=== PATIENT | male | born 1955 | race Caucasian/White ===

== ENCOUNTER 2019-04-06 04:28 | Emergency (ER) | payer OTHER ==
[~2019-04-06] VITALS: Ht 177.8 cm; Wt 81.6 kg
[2019-04-06] MEDS ORDERED: ASPIRIN 325 MG TABLET PO ONE (05:00)
[2019-04-06] MEDS ORDERED: METOPROLOL SUCCINATE XL 25 MG TAB.SR.24H PO ONE ×2 (05:00→05:01)
[2019-04-06 05:01] VITALS: BP 151/92
[2019-04-06] MEDS ORDERED: ASPIRIN 325 MG TABLET ONE (05:01)
[2019-04-06 05:19] LABS: POTASSIUM 3.8 mmol/L (3.5-5.1)
[2019-04-06 05:24] LABS: BASOPHILS # (AUTO) 0.1 K/uL (0.0-8.0); BASOPHILS % (AUTO) 0.9 % (0.0-2.0); EOSINOPHILS # (AUTO) 0.2 K/uL (0.0-0.7); EOSINOPHILS % (AUTO) 2.9 % (0.0-7.0); HEMATOCRIT 40.9 % (36.7-47.1); HEMOGLOBIN 13.9 g/dL (12.5-16.3); LYMPHOCYTES # (AUTO) 3.1 K/uL (20.0-40.0); LYMPHOCYTES % (AUTO) 37.3 % (20.5-51.5); MEAN CORPUSCULAR HEMOGLOBIN 31.6 uug (23.8-33.4); MEAN CORPUSCULAR HGB CONC 34 g/dL (32.5-36.3); MEAN CORPUSCULAR VOLUME 92.7 fL (73.0-96.2); MONOCYTES # (AUTO) 0.5 K/uL (2.0-10.0); MONOCYTES % (AUTO) 6.5 % (0.0-11.0); NEUTROPHILS # (AUTO) 4.4 K/uL (1.8-8.9); NEUTROPHILS % (AUTO) 52.4 % (38.5-71.5); PLATELET COUNT (AUTO) 240 K/uL (152-348); WHITE BLOOD COUNT (AUTO) 8.3 K/uL (3.6-10.2)
--- NOTE | 2019-04-06 06:13 | NUR ---
Patient discharged to home in stable conditon. Written and verbal after care instructions given. Patient verbalizes understanding of instructions.
== END 2019-04-06 06:15 | disposition home or self-care (01) ==
LOC: ER 04:30
DX: R00.2 Palpitations (principal); I49.3 Ventricular premature depolarization; E03.9 Hypothyroidism, unspecified; Z90.49 Acquired absence of other specified parts of digestive tract
CPT/HCPCS: 36415; 70030-TC; 71045; 84443; 85025; 93005; A4663

== ENCOUNTER 2019-08-13 20:35 | Emergency (ER) | payer OTHER ==
[~2019-08-13] VITALS: Ht 175.3 cm; Wt 81.6 kg
--- NOTE | 2019-08-13 21:23 | NUR ---
Dr. Parsons at bedside for MSE.
[2019-08-13] MEDS ORDERED: diphenhydrAMINE 50 MG CAPSULE PO ONE (21:30)
[2019-08-13] MEDS ORDERED: predniSONE 20 MG TABLET PO ONE (21:30)
[2019-08-13] MEDS ORDERED: FAMOTIDINE 20 MG TABLET PO ONE (21:30)
[2019-08-13] MEDS ORDERED: predniSONE 20 MG TABLET ONE (21:33)
[2019-08-13] MEDS ORDERED: diphenhydrAMINE 50 MG CAPSULE ONE (21:33)
[2019-08-13] MEDS ORDERED: FAMOTIDINE 20 MG TABLET ONE (21:34)
[2019-08-13 21:49] LABS: BASOPHILS % (AUTO) 0.6 % (0.0-2.0); EOSINOPHILS # (AUTO) 0.5 K/uL (0.0-0.7); EOSINOPHILS % (AUTO) 6.5 % (0.0-7.0); HEMATOCRIT 39.9 % (36.7-47.1); HEMOGLOBIN 13.7 g/dL (12.5-16.3); LYMPHOCYTES # (AUTO) 2.8 K/uL (20.0-40.0); LYMPHOCYTES % (AUTO) 39.1 % (20.5-51.5); MEAN CORPUSCULAR HEMOGLOBIN 32.6 uug (23.8-33.4); MEAN CORPUSCULAR HGB CONC 34 g/dL (32.5-36.3); MEAN CORPUSCULAR VOLUME 95.3 fL (73.0-96.2); MONOCYTES # (AUTO) 0.5 K/uL (2.0-10.0); MONOCYTES % (AUTO) 6.9 % (0.0-11.0); NEUTROPHILS # (AUTO) 3.4 K/uL (1.8-8.9); NEUTROPHILS % (AUTO) 46.9 % (38.5-71.5); PLATELET COUNT (AUTO) 241 K/uL (152-348); RED BLOOD CELL COUNT(AUTO) 4.19 MIL/uL (4.06-5.63); WHITE BLOOD COUNT (AUTO) 7.3 K/uL (3.6-10.2)
[2019-08-13 21:57] LABS: POTASSIUM 3.6 mmol/L (3.5-5.1)
[2019-08-13 22:10] LABS: BILIRUBIN,DIRECT 0.1 mg/dL (0.0-0.2); BILIRUBIN,TOTAL 0.5 mg/dL (0.2-1.0); TOTAL PROTEIN, SERUM 6.8 g/dL (6.4-8.2)
--- NOTE | 2019-08-13 22:51 | NUR ---
Ultrasound at bedside.
--- NOTE | 2019-08-13 23:22 | NUR ---
Pt provided urine sample, sent to lab.
[2019-08-13 23:27] LABS: *BILIRUBIN,URIN NEGATIVE (NEGATIVE); *BLOOD, URINE 1+ (NEGATIVE); *CLARITY,URINE CLEAR (CLEAR); *COLOR,URINE YELLOW (YELLOW); *KETONES,URINE NEGATIVE (NEGATIVE); *UROBILINOGEN,URINE 0.2 E.U./dl (NORMAL); LEUKOCYTE ESTERASE ,URINE NEGATIVE (NEGATIVE); NITRITE, URINE NEGATIVE (NEGATIVE); PH,URINE 8.5 (5.0-8.0); UGLUCOSE NEGATIVE (NEGATIVE)
[2019-08-13 23:38] LABS: BACTERIA,URINE NONE SEEN /HPF (NONE SEEN); SQUAMOUS EPITHELIAL CELL,UR FEW /HPF (NONE SEEN); WBC,URINE NONE SEEN /HPF (0-3)
--- NOTE | 2019-08-13 23:50 | NUR ---
Patient discharged to home in stable conditon. Written and verbal after care instructions given. Patient verbalizes understanding of instructions. Pt ambulated out of ER with steady gait, no acute signs of distress, VSS, all belongings taken.
[2019-08-13 23:51] VITALS: BP 150/82
== END 2019-08-13 23:52 | disposition home or self-care (01) ==
LOC: ER 20:39
DX: L25.9 Unspecified contact dermatitis, unspecified cause (principal); R60.9 Edema, unspecified; I48.91 Unspecified atrial fibrillation; Z90.49 Acquired absence of other specified parts of digestive tract
CPT/HCPCS: 36415; 71045; 80048; 80076; 81000; 81001; 83880; 84484; 85025; 85379; 93005; 93971; 99284; J7512; Q0163; 70030-TC; A4663

== ENCOUNTER 2021-01-03 22:37 | Emergency (ER) | payer OTHER ==
[~2021-01-03] VITALS: Ht 177.8 cm; Wt 81.6 kg
--- NOTE | 2021-01-03 23:15 | NUR ---
Patient is resting in bed, patient states concern for his high blood pressure.
[2021-01-03] MEDS ORDERED: AMLODIPINE 5 MG TABLET PO ONE (23:30)
[2021-01-03 23:51] LABS: BASOPHILS # (AUTO) 0.1 K/uL (0.0-8.0); BASOPHILS % (AUTO) 0.8 % (0.0-2.0); EOSINOPHILS # (AUTO) 0.1 K/uL (0.0-0.7); EOSINOPHILS % (AUTO) 0.9 % (0.0-7.0); HEMATOCRIT 46.4 % (36.7-47.1); HEMOGLOBIN 15.7 g/dL (12.5-16.3); LYMPHOCYTES # (AUTO) 3.1 K/uL (20.0-40.0); LYMPHOCYTES % (AUTO) 30.6 % (20.5-51.5); MEAN CORPUSCULAR HEMOGLOBIN 31.5 uug (23.8-33.4); MEAN CORPUSCULAR HGB CONC 34 g/dL (32.5-36.3); MEAN CORPUSCULAR VOLUME 93.3 fL (73.0-96.2); MONOCYTES # (AUTO) 0.5 K/uL (2.0-10.0); NEUTROPHILS # (AUTO) 6.3 K/uL (1.8-8.9); NEUTROPHILS % (AUTO) 62.7 % (38.5-71.5); PLATELET COUNT (AUTO) 286 K/uL (152-348); RED BLOOD CELL COUNT(AUTO) 4.97 MIL/uL (4.06-5.63); WHITE BLOOD COUNT (AUTO) 10.1 K/uL (3.6-10.2)
[2021-01-03] MEDS ORDERED: AMLODIPINE 5 MG TABLET ONE (23:53)
[2021-01-04 00:05] LABS: CREATININE 1.1 mg/dL (0.6-1.3); POTASSIUM 3.8 mmol/L (3.5-5.1)
[2021-01-04 00:11] LABS: BILIRUBIN,DIRECT 0.1 mg/dL (0.0-0.2); BILIRUBIN,TOTAL 0.2 mg/dL (0.2-1.0)
[2021-01-04] MEDS ORDERED: ACETAMINOPHEN ES 500 MG TABLET ONE (00:23)
[2021-01-04] MEDS ORDERED: ACETAMINOPHEN ES 500 MG TABLET PO ONE (00:30)
[2021-01-04 00:40] VITALS: BP 153/77
--- NOTE | 2021-01-04 00:40 | NUR ---
Patient does not wish to proceed with medical care recommended by Dr. Parsons. Patient given information related to possible complications, up to and including , which could occur as a result of leaving the hospital at this time. Patient verbalizes understanding of risks involved due to leaving against medical advice. Patient has signed AMA form. Patient is ambulates well. Patient left with all his belongings.
== END 2021-01-04 00:40 | disposition left against medical advice (07) ==
LOC: ER 22:39
DX: I10 Essential (primary) hypertension (principal); R51.9 Headache, unspecified; R94.31 Abnormal electrocardiogram [ECG] [EKG]
CPT/HCPCS: 36415; 70030-TC; 85025; 93005; A4663; A9150

== ENCOUNTER 2021-01-24 02:54 | Inpatient (IN) | payer OTHER ==
[~2021-01-24] VITALS: Ht 180.3 cm; Wt 77.1 kg
--- NOTE | 2021-01-24 03:03 | NUR ---
Patient arrived at the ER with c/o of high BP and CP.
--- NOTE | 2021-01-24 03:04 | NUR ---
Dr. Chan at bedside for MSE.
[2021-01-24 03:36] LABS: BASOPHILS # (AUTO) 0.1 K/uL (0.0-8.0); BASOPHILS % (AUTO) 0.5 % (0.0-2.0); EOSINOPHILS # (AUTO) 0.2 K/uL (0.0-0.7); EOSINOPHILS % (AUTO) 2.1 % (0.0-7.0); HEMATOCRIT 43.6 % (36.7-47.1); HEMOGLOBIN 14.8 g/dL (12.5-16.3); LYMPHOCYTES # (AUTO) 2.5 K/uL (20.0-40.0); MEAN CORPUSCULAR HEMOGLOBIN 31.7 uug (23.8-33.4); MEAN CORPUSCULAR HGB CONC 34 g/dL (32.5-36.3); MEAN CORPUSCULAR VOLUME 93.5 fL (73.0-96.2); MONOCYTES # (AUTO) 0.5 K/uL (2.0-10.0); NEUTROPHILS # (AUTO) 6.1 K/uL (1.8-8.9); NEUTROPHILS % (AUTO) 65.4 % (38.5-71.5); PLATELET COUNT (AUTO) 223 K/uL (152-348); RED BLOOD CELL COUNT(AUTO) 4.67 MIL/uL (4.06-5.63); WHITE BLOOD COUNT (AUTO) 9.3 K/uL (3.6-10.2)
[2021-01-24 04:03] LABS: CREATININE 1.2 mg/dL (0.6-1.3); POTASSIUM 3.5 mmol/L (3.5-5.1)
--- NOTE | 2021-01-24 06:30 | NUR ---
Telephone call to lab, spoke with Ana Lilia and informed that pt is due for 2nd trop. and stated that she will let the administrative assistant data entry know.
--- NOTE | 2021-01-24 07:00 | NUR ---
Received report from rn shift mgr. Pt resting with NAD noted, 2nd trop pending.
--- NOTE | 2021-01-24 07:30 | NUR ---
Per pt to be admitted to tele, EPIC paged, ER admitting notified and tele floor called for bed assignment.
--- NOTE | 2021-01-24 08:20 | NUR ---
Attempted to call report to tele floor, assigned nurse to call back for report.
--- NOTE | 2021-01-24 08:32 | NUR ---
Pt is eating breakfast, NAD noted. Pending call back from tele floor for report.
--- NOTE | 2021-01-24 08:50 | NUR ---
Pt trans to tele floor, NAD noted.
--- NOTE | 2021-01-24 08:55 | NUR ---
Patient arrived on the floor from ED via wheelchair. Alert, oriented, able to make needs known, cooperative. Denies pain at this time. No respiratory distress noted. Patient is ambulatory. Patient verbalized he drove to the hospital. On cardiac diet, had breakfast downstair and tolerated. Denies nausea or vomiting. VS taken and noted bp 148/77, p80, rr18 t98.3 spo2 98% pain 0/10. Skin is intact. Patient's belongings inventoried and confirmed by the patient. Personal belongings are put in the safe with his consent. Patient is kept comfortable. Call light is within reach. Dr. Archer aware of his arrival. Will continue to monitor.
[2021-01-24] MEDS ORDERED: HYDROCODONE/APAP 5-325MG TABLET PO PRN (09:30)
[2021-01-24] MEDS ORDERED: ONDANSETRON 4 MG/2 ML VIAL IV PRN (09:30)
[2021-01-24] MEDS ORDERED: ACETAMINOPHEN 325 MG TABLET PO PRN (09:30)
[2021-01-24] MEDS ORDERED: hydrALAZINE HCL 25 MG TABLET PO PRN (09:30)
[2021-01-24] MEDS: ASPIRIN EC 81 MG TABLET.DR PO SCH (10:23)
[2021-01-24 11:00] LABS: BILIRUBIN,DIRECT 0.2 mg/dL (0.0-0.2); BILIRUBIN,TOTAL 0.5 mg/dL (0.2-1.0)
[2021-01-24 11:50] VITALS: BP 128/77
--- NOTE | 2021-01-24 12:42 | NUR ---
Patient refused Covid rapid test. Explained that it's hospital policy to be tested but he still refused. Will try again later.
[2021-01-24] MEDS: METOPROLOL SUCCINATE XL 25 MG TAB.SR.24H PO SCH (13:57)
[2021-01-24 15:57] VITALS: BP 130/74
--- NOTE | 2021-01-24 16:30 | NUR ---
Asked patient again if he consents to be swabbed for covid test, but he refused. Informed that it is hospital policy, that we're not giving him any vaccine but he adamantly refused saying he doesn't have covid and that it doesn't exist. Charge nurse made aware.
--- NOTE | 2021-01-24 19:00 | NUR ---
PATIENT ALERT ORIENTED, NO SOB NO CHEST PAIN, TELE MONITOR SINUS RHYTHM AT THIS TIME, PATIENT DENIES PAIN AT THIS TIME, PATIENT ON DROPLET PRECAUTION, REFUSED TEST FOR COVID 19, EXPRESSING THAT IT'S [employer]. PATIENT BELIEF WAS RESPECTED. CONT TO MONITOR.
[2021-01-24 20:18] VITALS: BP 124/79
[2021-01-24] MEDS ORDERED: ATORVASTATIN 20 MG TABLET PO SCH (21:00)
--- NOTE | 2021-01-24 21:00 | NUR ---
PATIENT REFUSED LIPITOR MEDICATION, STATED "I WILL TAKE THEM TOMORROW". WILL CONT TO OFFER.
[2021-01-25 00:04] VITALS: BP 108/60
[2021-01-25 04:24] VITALS: BP 127/68
--- NOTE | 2021-01-25 04:33 | NUR ---
PATIENT ALERT ORIENTED, NO SOB NO CHEST PAIN, TELE MONITOR A FIB CONTROL. PATIENT CONTINUE TO REMIND THAT NO COFFEE, NO TEA, NO CAFFEINE BEVERAGES AT THIS TIME. PATIENT ON DROPLET PRECAUTION, NO FEVER, NO DIARRHEA, NO COUGHING NOTED,, CONT TO MONITOR. Addendum: 01/25/21 at 0453 by AMERICA MESSINA RN PATIENT ALERT ORIENTED, NO SOB NO CHEST PAIN, TELE MONITOR A FIB CONTROL. PATIENT CONTINUE TO REMIND THAT NO COFFEE, NO TEA, NO CAFFEINE BEVERAGES AT THIS TIME. PATIENT ON DROPLET PRECAUTION, NO FEVER, NO DIARRHEA, NO COUGHING NOTED,, CONT TO MONITOR. ERROR IN CHARTING.
--- NOTE | 2021-01-25 04:54 | NUR ---
PATIENT ALERT ORIENTED, NO SOB NO CHEST PAIN, TELE MONITOR SINUS RHYTHM. PATIENT CONTINUE TO REMIND THAT NO COFFEE, NO TEA, NO CAFFEINE BEVERAGES AT THIS TIME. PATIENT ON DROPLET PRECAUTION, NO FEVER, NO DIARRHEA, NO COUGHING NOTED,, CONT TO MONITOR.
[2021-01-25] MEDS ORDERED: PANTOPRAZOLE SODIUM 40 MG TABLET.DR PO SCH (07:00)
--- NOTE | 2021-01-25 07:30 | NUR ---
Received report on pt, pt resting in bed, awake alert and oriented x4, BRP, IV access on the right AC 20g saline lock. pt on room air, no signs of distress, no pain reported. pt on tele monitor controlled a-fib. Bed in low and locked position, call light within reach, will continue to monitor.
--- NOTE | 2021-01-25 08:08 | NUR ---
pt left via ambulance to [facility] for cardiac CTA procedure.
[2021-01-25] MEDS: METOPROLOL SUCCINATE XL 25 MG TAB.SR.24H PO SCH (08:11)
--- NOTE | 2021-01-25 09:43 | NUR ---
Pt back from [facility], will continue to monitor.
[2021-01-25] MEDS: ASPIRIN EC 81 MG TABLET.DR PO SCH (09:59)
[2021-01-25 10:53] VITALS: BP 111/68
[2021-01-25] MEDS ORDERED: LOSA25TA27 PO (12:04)
--- NOTE | 2021-01-25 13:07 | NUR ---
pt discharged from hospital via private car. Vitals are within normal limits, pt cooperative. Pt on room air, no signs of distress, no reports of pain reported. IV catheter has bee taken out, tele monitor box has been taken off of pt. Pt has been given all belongings, valuables and paperwork.
== END 2021-01-25 13:07 | disposition home or self-care (01) | DRG 203 ==
LOC: ER 02:58 → TELE3 08:35
PROVIDERS: ADMIT Internal Medicine; ATTEND Internal Medicine
DX: M94.0 Chondrocostal junction syndrome [Tietze] (principal); I10 Essential (primary) hypertension; I48.0 Paroxysmal atrial fibrillation; Z87.891 Personal history of nicotine dependence; F41.9 Anxiety disorder, unspecified; I09.9 Rheumatic heart disease, unspecified
CPT/HCPCS: 36415; 70030-TC; 71045; 85025; 93005; 93307; A4663; G0378

== ENCOUNTER 2023-06-22 17:28 | Inpatient (IN) | payer OTHER ==
[~2023-06-22] VITALS: Ht 177.8 cm; Wt 77.1 kg
[~2023-06-22 17:28] MED LIST: AMOX-430 PO; LOSA25TA27 PO
[2023-06-22 18:29] LABS: HEMATOCRIT 41.5 % (36.7-47.1); MEAN CORPUSCULAR HEMOGLOBIN 30.6 uug (23.8-33.4); PLATELET COUNT (AUTO) 445 K/uL (152-348)
[2023-06-22] MEDS ORDERED: KETOROLAC TROMETHAMINE 30 MG INJ IVP ONE (18:30)
[2023-06-22] MEDS ORDERED: PIPERACILLIN SODIUM/TAZOBACTAM 3.375 G in IV DEXTROSE 5% 50 ML IV ONE (18:30)
[2023-06-22 18:32] LABS: *BILIRUBIN,URIN NEGATIVE (NEGATIVE); *BLOOD, URINE 2+ (NEGATIVE); *CLARITY,URINE SLIGHTLY CLOUDY (CLEAR); *COLOR,URINE YELLOW (YELLOW); *KETONES,URINE NEGATIVE (NEGATIVE); *UROBILINOGEN,URINE 0.2 E.U./dl (NORMAL); LEUKOCYTE ESTERASE ,URINE NEGATIVE (NEGATIVE); NITRITE, URINE NEGATIVE (NEGATIVE); UGLUCOSE NEGATIVE (NEGATIVE)
[2023-06-22] MEDS ORDERED: KETOROLAC TROMETHAMINE 30 MG INJ ONE (18:33)
[2023-06-22] MEDS ORDERED: PIPERACILLIN/TAZOBACTAM/D5W 50 ML IV ONE (18:33)
[2023-06-22 18:43] LABS: CARBON DIOXIDE 28 mmol/L (21-32); CHLORIDE 102 mmol/L (98-107); CREATININE 0.8 mg/dL (0.6-1.3); POTASSIUM 4.1 mmol/L (3.5-5.1); UREA NITROGEN, BLOOD 15 mg/dL (7-18)
[2023-06-22 18:53] LABS: ALANINE AMINOTRANSFERASE 38 U/L (16-63); ALKALINE PHOSPHATASE 88 U/L (50-136); ASPARTATE AMINOTRANSFERASE 22 U/L (15-37); BILIRUBIN,DIRECT 0.1 mg/dL (0.0-0.2); BILIRUBIN,TOTAL 0.3 mg/dL (0.2-1.0); TOTAL PROTEIN, SERUM 7.5 g/dL (6.4-8.2)
[2023-06-22 19:01] LABS: LIPASE 41 U/L (73-393)
[2023-06-22] MEDS ORDERED: IV D5 1/2 NS 1000 ML 1,000 ML IV PRN (22:45)
[2023-06-22] MEDS ORDERED: ACETAMINOPHEN 650 MG SUPP.RECT RC PRN (22:45)
[2023-06-22] MEDS ORDERED: ONDANSETRON 4 MG/2 ML VIAL IV PRN (22:45)
[2023-06-23] VITALS: BP 138/73; TEMP 98.2; O2SAT 100
[2023-06-23] MEDS: MORPHINE SULFATE 2 MG/1 ML DISP.SYRIN IV PRN (02:17)
[2023-06-23] MEDS ORDERED: PIPERACILLIN/TAZOBACTAM/D5W 50 ML IV ONE (02:23)
[2023-06-23] MEDS ORDERED: PIPERACILLIN SODIUM/TAZOBACTAM 3.375 G in IV DEXTROSE 5% 50 ML IV SCH ×2 (03:00→06:00)
[2023-06-23] MEDS ORDERED: KETOROLAC TROMETHAMINE 15 MG INJ IVP ONE (04:15)
[2023-06-23] MEDS: IV 1/2NS 1000 ML 1,000 ML IV PRN ×2 (04:51→17:56)
[2023-06-23 05:32] VITALS: BP 117/59; TEMP 98.2; O2SAT 100
[2023-06-23 07:39] LABS: HEMATOCRIT 36.9 % (36.7-47.1); MEAN CORPUSCULAR HEMOGLOBIN 31.7 uug (23.8-33.4); MEAN CORPUSCULAR VOLUME 92.7 fL (73.0-96.2); PLATELET COUNT (AUTO) 370 K/uL (152-348)
[2023-06-23 08:03] LABS: BILIRUBIN,TOTAL 0.6 mg/dL (0.2-1.0); CREATININE 0.8 mg/dL (0.6-1.3); PHOSPHOROUS 2.8 mg/dL (2.5-4.9); POTASSIUM 3.6 mmol/L (3.5-5.1); TOTAL PROTEIN, SERUM 6.4 g/dL (6.4-8.2)
[2023-06-23] MEDS: PANTOPRAZOLE SODIUM 40 MG VIAL IV SCH ×2 (08:45→08:51)
[2023-06-23] MEDS ORDERED: PIPERACILLIN SODIUM/TAZOBACTAM 3.375 G in IV DEXTROSE 5% 100 ML IV SCH (11:00)
[2023-06-23] MEDS ORDERED: TAZOBACTAM IV SCH (11:30)
[2023-06-23] MEDS ORDERED: NORMAL SALINE IV SCH (11:30)
[2023-06-23] MEDS ORDERED: PIPERACILLIN SODIUM IV SCH (11:30)
[2023-06-23 11:42] VITALS: BP 119/64; TEMP 98.4; O2SAT 97
[2023-06-23] MEDS: PIPERACILLIN SODIUM IV SCH ×2 (12:02→18:07)
[2023-06-23] MEDS: NORMAL SALINE IV SCH ×2 (12:02→18:07)
[2023-06-23] MEDS: TAZOBACTAM IV SCH ×2 (12:02→18:07)
[2023-06-23 16:27] VITALS: BP 111/49; TEMP 98.8; O2SAT 98
[2023-06-23 20:04] VITALS: BP 142/64; TEMP 98.2; O2SAT 97
[2023-06-24] MEDS: NORMAL SALINE IV SCH ×3 (02:12→18:01)
[2023-06-24] MEDS: PIPERACILLIN SODIUM IV SCH ×3 (02:12→18:01)
[2023-06-24] MEDS: TAZOBACTAM IV SCH ×3 (02:12→18:01)
[2023-06-24] MEDS: MORPHINE SULFATE 2 MG/1 ML DISP.SYRIN IV PRN ×3 (03:23→23:54)
[2023-06-24 05:29] VITALS: BP 130/62; TEMP 98.3; O2SAT 98
[2023-06-24] MEDS: PANTOPRAZOLE SODIUM 40 MG VIAL IV SCH (08:00)
[2023-06-24] MEDS ORDERED: FAMOTIDINE. 20 MG/2 ML VIAL IV ONE (12:19)
[2023-06-24] MEDS ORDERED: ROCURONIUM BROMIDE 50 MG/5 ML VIAL ONE (12:19)
[2023-06-24] MEDS ORDERED: MIDAZOLAM HCL 2 MG/2 ML VIAL ONE (12:19)
[2023-06-24] MEDS ORDERED: FENTANYL CITRATE 250 MCG/5 ML AMPUL ONE (12:19)
[2023-06-24] MEDS ORDERED: LIDOCAINE 1%-EPI 1:100,000 20 ML VIAL ONE (12:50)
[2023-06-24] MEDS ORDERED: SEVOFLURANE 250 ML BOTTLE ONE (12:50)
[2023-06-24] MEDS ORDERED: BUPIVACAINE 0.25% 30 ML VIAL ONE (12:50)
[2023-06-24] MEDS ORDERED: BACITRACIN/POLYMYXIN B OINT 15 GM TUBE ONE (14:01)
[2023-06-24] MEDS ORDERED: METOCLOPRAMIDE HCL 10 MG/2 ML VIAL ONE (14:26)
[2023-06-24] MEDS ORDERED: DEXAMETHASONE SOD PHOSPHATE 4 MG INJ ONE (14:26)
[2023-06-24] MEDS ORDERED: CEFAZOLIN 1 G VIAL ONE ×2 (14:26)
[2023-06-24] MEDS ORDERED: ONDANSETRON 4 MG/2 ML VIAL ONE (14:26)
[2023-06-24] MEDS ORDERED: PROPOFOL 200 MG/20 ML BOTTLE ONE (14:26)
[2023-06-24] MEDS ORDERED: KETOROLAC TROMETHAMINE 30 MG INJ ONE (14:26)
[2023-06-24] MEDS ORDERED: LIDOCAINE-MPF 2% 5 ML VIAL ONE (14:26)
[2023-06-24] MEDS ORDERED: HYDROMORPHONE 1 MG/1 ML DISP.SYRIN ONE (15:13)
[2023-06-24 15:54] VITALS: BP 126/61; TEMP 98; O2SAT 97
[2023-06-24] MEDS: GABAPENTIN 300 MG CAPSULE PO SCH ×2 (16:25→22:33)
[2023-06-24] MEDS: CELECOXIB 200 MG CAPSULE PO SCH ×3 (16:25→20:38)
[2023-06-24] MEDS: ACETAMINOPHEN 325 MG TABLET PO SCH ×3 (16:27→22:33)
[2023-06-24] MEDS: IV 1/2NS 1000 ML 1,000 ML IV PRN (17:25)
[2023-06-24 19:01] VITALS: O2SAT 98
[2023-06-24 20:00] VITALS: BP 119/64; TEMP 98.5; O2SAT 98
[2023-06-25 04:00] VITALS: BP 114/59; TEMP 97.9; O2SAT 98
[2023-06-25] MEDS: TAZOBACTAM IV SCH ×3 (04:01→18:53)
[2023-06-25] MEDS: NORMAL SALINE IV SCH ×3 (04:01→18:53)
[2023-06-25] MEDS: PIPERACILLIN SODIUM IV SCH ×3 (04:01→18:53)
[2023-06-25] MEDS: ACETAMINOPHEN 325 MG TABLET PO SCH ×3 (05:01→20:43)
[2023-06-25] MEDS: GABAPENTIN 300 MG CAPSULE PO SCH ×3 (05:05→20:43)
[2023-06-25] MEDS: MORPHINE SULFATE 2 MG/1 ML DISP.SYRIN IV PRN ×4 (05:05→22:00)
[2023-06-25 06:45] LABS: HEMATOCRIT 37.2 % (36.7-47.1); MEAN CORPUSCULAR HEMOGLOBIN 30.9 uug (23.8-33.4); MEAN CORPUSCULAR VOLUME 92.6 fL (73.0-96.2); PLATELET COUNT (AUTO) 313 K/uL (152-348)
[2023-06-25 06:57] LABS: CREATININE 0.8 mg/dL (0.6-1.3); MAGNESIUM 2.2 mg/dL (1.8-2.4); PHOSPHOROUS 2.8 mg/dL (2.5-4.9); POTASSIUM 4.2 mmol/L (3.5-5.1)
[2023-06-25] MEDS: PANTOPRAZOLE SODIUM 40 MG VIAL IV SCH (08:51)
[2023-06-25] MEDS: CELECOXIB 200 MG CAPSULE PO SCH ×2 (08:51→20:42)
[2023-06-25 13:11] VITALS: BP 112/65; TEMP 97.8; O2SAT 97
[2023-06-25 16:00] VITALS: BP 108/60; TEMP 98; O2SAT 98
[2023-06-25 20:19] VITALS: BP 126/66; TEMP 99.1; O2SAT 95
[2023-06-25] MEDS: IV 1/2NS 1000 ML 1,000 ML IV PRN (20:43)
[2023-06-26] VITALS (7 sets, daily range): BP systolic 103–143; BP diastolic 55–71; TEMP 99.4–102; O2SAT 93–100
[2023-06-26] MEDS: MORPHINE SULFATE 2 MG/1 ML DISP.SYRIN IV PRN ×3 (01:01→10:41)
[2023-06-26] MEDS: PIPERACILLIN SODIUM IV SCH ×2 (02:54→10:27)
[2023-06-26] MEDS: NORMAL SALINE IV SCH ×2 (02:54→10:27)
[2023-06-26] MEDS: TAZOBACTAM IV SCH ×2 (02:54→10:27)
[2023-06-26] MEDS: ACETAMINOPHEN 325 MG TABLET PO SCH ×3 (05:38→22:51)
[2023-06-26] MEDS: GABAPENTIN 300 MG CAPSULE PO SCH ×3 (05:38→22:51)
[2023-06-26 06:42] LABS: HEMATOCRIT 35.7 % (36.7-47.1); MEAN CORPUSCULAR HEMOGLOBIN 31.5 uug (23.8-33.4); MEAN CORPUSCULAR VOLUME 92.6 fL (73.0-96.2); PLATELET COUNT (AUTO) 337 K/uL (152-348)
[2023-06-26 07:01] LABS: MAGNESIUM 1.7 mg/dL (1.8-2.4); PHOSPHOROUS 1.2 mg/dL (2.5-4.9); POTASSIUM 3.6 mmol/L (3.5-5.1)
[2023-06-26] MEDS: CELECOXIB 200 MG CAPSULE PO SCH ×2 (09:00→20:34)
[2023-06-26] MEDS: PANTOPRAZOLE SODIUM 40 MG VIAL IV SCH (09:10)
[2023-06-26 11:59] LABS: *BILIRUBIN,URIN NEGATIVE (NEGATIVE); *BLOOD, URINE 1+ (NEGATIVE); *CLARITY,URINE CLEAR (CLEAR); *COLOR,URINE YELLOW (YELLOW); *KETONES,URINE NEGATIVE (NEGATIVE); *UROBILINOGEN,URINE 0.2 E.U./dl (NORMAL); LEUKOCYTE ESTERASE ,URINE NEGATIVE (NEGATIVE); NITRITE, URINE NEGATIVE (NEGATIVE); UGLUCOSE NEGATIVE (NEGATIVE)
[2023-06-26 13:05] LABS: BACTERIA,URINE FEW /HPF (NONE SEEN); RBC,URINE 0-3 /HPF (0-3); WBC,URINE NONE SEEN /HPF (0-3)
[2023-06-26] MEDS: MAGNESIUM OXIDE 400 MG TABLET PO SCH ×2 (14:16→16:22)
[2023-06-26] MEDS ORDERED: NEUTRA PHOS PACKET PO ONE (15:45)
[2023-06-26] MEDS ORDERED: IV NORMAL SALINE 250 ML IV ONE (15:49)
[2023-06-26] MEDS ORDERED: SWABABLE VALVE TRANSFER SET EA MC ONE (15:49)
[2023-06-26] MEDS ORDERED: IOHEXOL 300MG/ML 100 ML INFUS..BTL ONE (15:49)
[2023-06-26] MEDS ORDERED: PIPERACILLIN SODIUM IV SCH (18:00)
[2023-06-26] MEDS ORDERED: TAZOBACTAM IV SCH (18:00)
[2023-06-26] MEDS ORDERED: NORMAL SALINE IV SCH (18:00)
[2023-06-26] MEDS: PIPERACILLIN SODIUM/TAZOBACTAM 3.375 G in IV NORMAL SALINE 50 ML IV SCH ×2 (18:08→23:50)
[2023-06-27] MEDS: IV 1/2NS 1000 ML 1,000 ML IV PRN (00:35)
[2023-06-27] MEDS: GABAPENTIN 300 MG CAPSULE PO SCH ×2 (06:03→13:14)
[2023-06-27] MEDS: ACETAMINOPHEN 325 MG TABLET PO SCH ×2 (06:03→13:14)
[2023-06-27] MEDS: PIPERACILLIN SODIUM/TAZOBACTAM 3.375 G in IV NORMAL SALINE 50 ML IV SCH ×2 (06:05→12:09)
[2023-06-27 06:36] VITALS: BP 111/62; TEMP 97.1; O2SAT 97
[2023-06-27] MEDS ORDERED: PANTOPRAZOLE SODIUM 40 MG TABLET.DR PO SCH (07:00)
[2023-06-27 07:07] LABS: CREATININE 0.8 mg/dL (0.6-1.3); PHOSPHOROUS 2.4 mg/dL (2.5-4.9); POTASSIUM 3.5 mmol/L (3.5-5.1)
[2023-06-27] MEDS: CELECOXIB 200 MG CAPSULE PO SCH (09:32)
[2023-06-27 10:06] LABS: HEMATOCRIT 34.5 % (36.7-47.1); MEAN CORPUSCULAR VOLUME 93.1 fL (73.0-96.2); PLATELET COUNT (AUTO) 300 K/uL (152-348)
[2023-06-27] MEDS ORDERED: GABA300C PO (11:40)
[2023-06-27] MEDS ORDERED: CIPR500T5 PO (11:40)
[2023-06-27] MEDS ORDERED: CELE200C PO (11:40)
[2023-06-27] MEDS ORDERED: METR500T PO (11:40)
[2023-06-27 12:00] VITALS: BP 104/57; TEMP 97.5; O2SAT 96
[2023-06-27 15:56] VITALS: BP 102/57; TEMP 98.3; O2SAT 96
[2023-06-27] MEDS ORDERED: NEUTRA PHOS PACKET PO ONE (16:00)
[2023-06-27] MEDS ORDERED: PROTEIN SUPPLEMENT (PROSTAT) 30 ML LIQUID PO SCH (17:00)
[2023-06-28] MEDS ORDERED: GLUCERNA SHAKE 237 ML CAN PO SCH (09:00)
== END 2023-06-27 16:00 | disposition home or self-care (01) | DRG 263 ==
LOC: ER 17:37 → MEDSURG3 22:17
PROVIDERS: ADMIT Internal Medicine; ATTEND Nurse Practitioner Family
PROC: 0DNU0ZZ Release Omentum, Open Approach (ICD-10-PCS; principal; 2023-06-24)
PROC: 0FJ44ZZ Inspection of Gallbladder, Percutaneous Endoscopic Approach (ICD-10-PCS; principal; 2023-06-24)
PROC: 0FT40ZZ Resection of Gallbladder, Open Approach (ICD-10-PCS; principal; 2023-06-24)
DX: K80.12 Calculus of gallbladder with acute and chronic cholecystitis without obstruction (principal); E44.0 Moderate protein-calorie malnutrition; D69.6 Thrombocytopenia, unspecified; E88.09 Other disorders of plasma-protein metabolism, not elsewhere classified; I48.0 Paroxysmal atrial fibrillation; E78.5 Hyperlipidemia, unspecified; K66.0 Peritoneal adhesions (postprocedural) (postinfection); Z87.891 Personal history of nicotine dependence; M06.9 Rheumatoid arthritis, unspecified; I10 Essential (primary) hypertension; Z86.19 Personal history of other infectious and parasitic diseases; K52.9 Noninfective gastroenteritis and colitis, unspecified
CPT/HCPCS: 36415; 71045; 71046; 78445; 83605; 83690; 83735; 84100; 84484; 85025; 85610; A4663; A9537; C9113; G0378; J0690; J1100; J1170; J1885; J2250; J2270; J2405; J2543; J2765; J3010; J3490; Q9967